=== PATIENT | female | born 1945 | race Caucasian/White ===

== ENCOUNTER 2017-03-09 09:35 | Observation (INO) | payer MEDICARE, BC ==
[~2017-03-09] VITALS: Ht 167.6 cm; Wt 102.7 kg
--- NOTE | ~2017-03-09 | ECH ---
Transthoracic Echocardiography Report (TTE) Demographics Patient Name GIORGI FRY Date of Study 03/10/2017 Patient Number [id number] Visit Number [id number] Date of 1945 Room Number 421 Accession Number [id number] Gender Female Age 72 year(s) Referring King Rosales Subramanian MD Flight Attendant Ramp Tamika Pena Physician Davion Atwood [facility] Physician Interpreting Reva Estrella MD Vehicle Painter Physician Supervising Ordering Physician Davion Atwood MD/STEPHANE Nurse Stress Cdl Driver Conclusions Summary Technically adequate exam. The estimated left ventricular ejection fraction is 60-65%. The left ventricle is moderately dilated . There is evidence of a patent foramen ovale by color Doppler. Informed consent was obtained, bubble study was done, there is no evidence for a PFO or ASD. There is mild aortic regurgitation by color Doppler. Trivial tricuspid regurgitation by color Doppler. There is mild pulmonary hypertension. The pulmonary pressure (RVSP) is 35 mmHg. Procedure Type of Study TTE procedure:Echo Complete SF. Procedure Date Date: 03/10/2017 Start: 08:56 AM Technical Quality: Adequate visualization Indications:Supraventricular Tachycardia, Diabetes, Coronary artery disease, Hypertension and History of CABG. Appropriate Use Criteria: 9 Height: 66 inches Weight: 226 pounds BSA: 2.11 m Rhythm: Within normal limits HR: 96 bpm BP: 149/64 mmHg M-Mode/2D Measurements LV Diastolic Dimension: 6.08 cm LV Systolic Dimension: 3.95 cm LV Septum Diastolic: 0.93 cm LV PW Diastolic: 0.88 cm AO Root Dimension: 2.62 cm Cardiac Output: 7.71 l/min LA Dimension: 4.14 cm Cardiac Index: 3.65 l/min*m RV Diastolic Dimension: 4.17 cm LA volume index: 25 ml/m LVOT: 1.92 cm LVOT VTI: 27.74 cm RV Base: 2.6 cm LV Stroke volume: 80.27 ml RV Mid: 1.5 cm LV Stroke volume index: 38.04 ml/m TAPSE: 2.4 cm TDI-S': 14 cm/s Doppler Measurements AV Peak Velocity: 2.2 m/s MV Peak E-Wave: 1.04 m/s AV Peak Gradient: 19.36 mmHg MV Peak A-Wave: 0.81 m/s AV Mean Gradient: 9.71 mmHg MV E/A Ratio: 1.28 LVOT Peak Velocity: 1.4 m/s MV P1/2t: 60.9 msec AV Area (Continuity):1.99 cm AV P1/2t: 436.3 msec MV Deceleration Time: 190.6 msec TR Velocity:2.84 m/s MV Area (PHT): 3.61 cm TR Gradient:32.26 mmHg PV Peak Velocity: 1.65 m/s Estimated RAP:3 mmHg PV Peak Gradient: 10.94 mmHg Estimated RVSP: 35 mmHg Estimated PASP: 35.26 mmHg E' Septal Velocity: 0.09 m/s A' Septal Velocity: 0.12 m/s E' Lateral Velocity: 0.09 m/s A' Lateral Velocity: 0.15 m/s RA Area: 13.39 cm Findings Left Ventricle The left ventricle is moderately dilated . Diastolic assessment reveals normal relaxation. Right Ventricle Normal right ventricle structure and function. Left Atrium Normal left atrial size. There is evidence of a patent foramen ovale by color Doppler. Informed consent was obtained, bubble study was done, there is no evidence for a PFO or ASD. Right Atrium Normal right atrial size. Mitral Valve Normal mitral valve structure and function. Trivial mitral regurgitation by color Doppler. Aortic Valve The aortic valve is moderately sclerotic. There is mild aortic regurgitation by color Doppler. Tricuspid Valve Normal tricuspid valve structure and function. Trivial tricuspid regurgitation by color Doppler. There is mild pulmonary hypertension. The pulmonary pressure (RVSP) is 35 mmHg. Pulmonic Valve Normal pulmonic valve structure and function. Pericardial Effusion No evidence of pericardial effusion. Miscellaneous Visualized portions of the aortic root and ascending aorta appear normal in size. Pleural Effusion No evidence of pleural effusion. Signature
[2017-03-11] MEDS ORDERED: LEVEMIR100 UNIT/1 SQ ×2 (10:41)
[2017-03-11] MEDS ORDERED: NOVOLOG100 UNIT/2 SQ (10:42)
[2017-03-11] MEDS ORDERED: METOPROLOL SUC100 MG PO (10:43)
[2017-03-11] MEDS ORDERED: ZESTRIL DPS20 MG PO (10:43)
[2017-03-11] MEDS ORDERED: ISOPTIN DPS120 MG PO (10:44)
[2017-03-11] MEDS ORDERED: TRIAMTERENE-HC1 EAC1 PO (10:44)
[2017-03-11] MEDS ORDERED: DAILY MULTIPLE1 EAC1 PO (10:45)
[2017-03-11] MEDS ORDERED: MOTRIN-DPS800 MG PO (10:45)
[2017-03-11] MEDS ORDERED: ASPIR-LOW81 MG PO (10:45)
[2017-03-11] MEDS ORDERED: LIPITOR DPS20 MG PO (10:45)
[2017-03-11] MEDS ORDERED: VITAMIN D2000 UNIT PO (10:46)
[2017-03-11] MEDS ORDERED: VITAMIN C1000 MG PO (10:46)
[2017-03-11] MEDS ORDERED: VITAMIN B-6100 MG PO (10:47)
[2017-03-11] MEDS ORDERED: CHROMIUM400 MCG PO (10:47)
[2017-03-11] MEDS ORDERED: VITAMIN B-12500 MCG PO (10:47)
[2017-03-11] MEDS ORDERED: GARLIC1 EAC1 PO (10:47)
--- NOTE | 2017-03-12 00:34 | ER ---
ADMIT: 03/09/2017 RM/LOC: 421 [facility] MR#: [id number] [address] [address] GIORGI FRY [address] [place] [address] Emergency Room Report SEX: F AGE: 72 : 1945 DATE: 03/09/2017 TIME: 0935 hours Please refer to my T-sheet for complete H and P. HISTORY OF PRESENT ILLNESS: Briefly, the patient is a 72-year-old that comes in with this chest pressure and rapid heart rate, it started while she was eating breakfast this morning. She does have a known history of coronary disease. She also has diabetes, high blood pressure, high cholesterol. She had a bypass 19 years ago. PHYSICAL EXAMINATION: VITAL SIGNS: Blood pressure 179/93, pulse 120, respirations 14, temp 97.6, and saturating 100% on 4 L. GENERAL: No acute distress. HEENT: Grossly normal. LUNGS: Clear. HEART: Tachy. Regular. ABDOMEN: Soft. SKIN: No rash. EXTREMITIES: No palpable cords. EMERGENCY DEPARTMENT COURSE: She received adenosine x2 by the paramedics. She then went back into a rapid rate here in the 200s. I gave her Lopressor 5 IV, which dropped it nicely. We repeated that times total of 50 mg. Her pulse is below 100. She is feeling much better. CBC normal except hemoglobin 9.1. Chemistry is normal except potassium 3.6, glucose 313. Cardiac enzymes negative. TSH was normal. Chest x-ray, no acute disease. EKG was sinus rhythm, rate 129, diffuse changes. We went ahead and heparinized her. I talked to Dr. Ricardo and he will admit to the hospital. ASSESSMENT: 1. Chest pain. 2. Narrow complex tachycardia. 3. Hypertension. PLAN: Admit to the hospital. Rhett Bright MD/ lupe JOB #: [id number] CC: Jeancarlos Brown MD, Attending Physician Jeancarlos Brown MD, Family Physician
--- NOTE | 2017-03-19 15:58 | CO ---
ADMIT: 03/09/2017 RM/LOC: 421 [facility] MR#: [id number] [address] [address] GIORGI FRY [address] [place] [address] Consultation SEX: F AGE: 72 : 1945 DATE OF CONSULTATION: 03/10/2017 ATTENDING PHYSICIAN: Jeancarlos Brown MD CONSULTING PHYSICIAN: Rosales Beltran MD REASON FOR CONSULT: Supraventricular tachycardia. Yolanda Youssef RN, scribing for Dr. Rosales Beltran. HISTORY OF PRESENT ILLNESS: Giorgi is a pleasant 72-year-old female, I have been asked to see in Cardiology consultation by Dr. Ricardo for SVT. She follows up in [facility]. She was last seen in July by Dr. Lester Silveira for her history of single-vessel bypass in 1998 and peripheral vascular disease status post right carotid endarterectomy in 2014. Last echocardiogram was in August of 2016 showing ejection fraction of 60% with mild LVH mild aortic regurgitation and mild pulmonary hypertension. She has history of diabetes, hypertension, and hyperlipidemia, treated medically. Home medications include beta phillip with Lopressor 100 b.i.d. She also has verapamil 120 daily, however she reports that she has not been taking her verapamil consistently as she is worried about lower blood pressure with that. She has not had a stress test performed since 2007. Giorgi presented to [facility] with complaints of palpitations and significant shortness of breath. She reports that she was at home, just finished breakfast yesterday when she began to have severe palpitations in her chest and could not breathe. She had to lean forward in her chair to breathe. She also was lightheaded. Her called EMS. On their arrival, they noted that her heart rate was in the 200s. She was given adenosine 6 mg, which broke her rhythm very briefly, but she went back into SVT. She was given 12 mg of adenosine, which again broke her rhythm, but unfortunately, she went back to heart rates in the 200 to 230. She arrived to the emergency room. She was given 5 mg IV Lopressor three different times, which eventually did get her heart rate down to 100. Her symptoms improved greatly after that point. Cardiac enzymes x3 have been negative. She had mild elevated D-dimer of 0.7. There was question of atrial fibrillation on her EKG and so she was started on a heparin drip. She had venous duplex given elevated D-dimer, which was negative. Of note, she is anemic with a hemoglobin of 8.1. 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 She reports that her anemia is due to her celiac disease. Since hospitalization, she has not had any further episodes of rapid heart rates. She has been receiving her Lopressor, but not her verapamil since admission. She also takes Maxzide 37.5/25 and Zestril 40 daily. Blood pressure has been under good control. PAST MEDICAL HISTORY: Hypertension, hyperlipidemia, diabetes, coronary artery disease status post single-vessel bypass in 1998, right carotid endarterectomy in February 2015, celiac disease, ulcerative colitis, history of peptic ulcer disease, history of kidney stones status post a lithotripsy, osteoporosis, ADMIT: 03/09/2017 RM/LOC: 421 [facility] MR#: [id number] [facility] [address] [address] GIORGI FRY [address] [place] [address] Consultation SEX: F AGE: 72 : 1945 osteoarthritis, chronic anemia, and diabetic neuropathy. PAST SURGICAL HISTORY: Includes bypass in 1998, two left rotator cuff repairs, one right rotator cuff repair, right carotid endarterectomy, bilateral carpal tunnel release, knee scope, appendectomy, tonsillectomy, and lithotripsy. ALLERGIES: ADHESIVE TAPE AND MORPHINE. MEDICATIONS: Current medications include: 1. Aspirin 81 daily. 2. Lipitor 20 daily. 3. Lopressor 100 b.i.d. 4. Maxzide 37.5/25 daily. 5. Zestril 40 daily. 6. Heparin drip per protocol. 7. Lopressor IV 5 mg every 2 hours p.r.n. 8. NovoLog sliding scale insulin. 9. Levemir 80 at bedtime and 60 daily. 10.Vitamin D 1000 daily. 11.Vitamin C 500 daily. FAMILY HISTORY: Denies any family history of coronary artery disease in biological parents. SOCIAL HISTORY: Giorgi is . She lives at home with her . She is a Scientologist. She follows a gluten free diet. She denies any caffeine, alcohol, drug, or tobacco use. She quit smoking over 50 years ago. REVIEW OF SYSTEMS: GENERAL: Denies fatigue, fever, chills, sweats, rash, or weight loss. EYES: Denies double vision, blurred vision, cataracts, or glaucoma. ENT: Denies hearing loss or problems with nose, mouth or throat. PULMONARY: Denies cough, sputum production, asthma, emphysema or bronchitis. Denies snoring loudly, wakefulness at night, or fatigue upon awakening. GASTROINTESTINAL: History of celiac disease, peptic ulcer disease, ulcerative colitis. Denies heartburn or difficulty swallowing. No change in bowel habits. Denies dark or bloody stools. No history of ulcers, hiatal hernia, or gallbladder or liver disease. GENITOURINARY: History of kidney stones. Denies dysuria, hematuria, nocturia, urinary tract infection, or kidney stones. Denies history of renal insufficiency or failure. MUSCULOSKELETAL: History of osteoarthritis, osteoporosis, denies gout. ENDOCRINE: Positive for diabetes. Denies thyroid disease. HEMATOLOGIC: Chronic anemia. Denies any bleeding issues currently or cancer. She is anemic with a hemoglobin of 8.1. NEUROLOGIC: History of diabetic neuropathy. Denies chronic headaches, dizziness, syncope, stroke, seizures or numbness or tingling. ADMIT: 03/09/2017 RM/LOC: 421 [facility] MR#: [id number] [address] [address] GIORGI FRY [address], [place] [address] Consultation SEX: F AGE: 72 : 1945 PSYCHIATRIC: Denies history of mental illness or feelings of depression. PHYSICAL EXAMINATION: VITAL SIGNS: Blood pressure 155/60, heart rate 100, respirations 14, temperature 98.1, oxygenation 95% on room air. SKIN: [place], warm and dry. EYES: Sclerae clear. No xanthelasmas. ENT: Oral mucosa is pink and moist. No jugular venous distention or carotid bruits. CHEST: Respirations are even and unlabored. Lungs are clear to auscultation. HEART: Regular rate and rhythm. Normal S1, S2. No murmurs, rubs or gallops. ABDOMEN: Soft and nontender. MUSCULOSKELETAL: Gait is normal. EXTREMITIES: Peripheral pulses palpable. No clubbing, cyanosis or edema. PSYCHIATRIC: Alert and oriented. Mood and affect are appropriate. DIAGNOSTIC DATA: Venous duplex on 03/09 showed negative for DVT bilaterally. Sodium 141, potassium 3.7, BUN 16, creatinine 0.9, glucose 182, and magnesium 2.1. TSH 2.87 D-dimer 0.7. Hemoglobin A1c 8.4. White blood cell count 9.9, hemoglobin 8.1, hematocrit 27.8, and platelets 517. CK 33, MB 0.9, troponin 0.031. This is on third set. All three sets have been negative. ASSESSMENT AND PLAN: 1. Supraventricular tachycardia. 2. Coronary artery disease status post single-vessel bypass in 1998. 3. Carotid occlusive disease status post right carotid endarterectomy in 2014. 4. Diabetes mellitus. 5. Hypertension. 6. Hyperlipidemia. It sounds like she has had her first episode of SVT yesterday. She denies any previous episodes similar to this. I will have her continue on her metoprolol ADMIT: 03/09/2017 RM/LOC: 421 [facility] MR#: [id number] [facility] [address] [address] GIORGI FRY [address] [place] [address] Consultation SEX: F AGE: 72 : 1945 and encouraged her to take her verapamil on a regular basis. I would send her home if her echocardiogram looks okay today with monitor for one week to make sure she is not having any other episodes of SVT unrecognized. If she has more episodes in the future, then I discussed with her that she would need to talk to Electrophysiology about consideration of ablation. I think she is okay to discharge today and follow up in 1 month with myself or Dr. Silveira. I will decrease her lisinopril if she has issues with low blood pressures. "I have read and agree with the documentation that has been completed regarding this visit. By signing this record, I attest that the documentation was completed in my physical presence and is an accurate record of the encounter." Yolanda Youssef RN / Rosales Beltran MD / lupe JOB #: [id number] CC: Jeancarlos Brown MD, Attending Physician Jeancarlos Brown MD, Family Physician
--- NOTE | 2017-03-25 08:25 | HP ---
ADMIT: 03/09/2017 RM/LOC: 421 [facility] MR#: [id number] [address] [address] GIORGI FRY [address] [place] [address] History and Physical SEX: F AGE: 72 : 1945 Corrected: 03/10/2017 1317 tanya DATE OF SERVICE: CHIEF COMPLAINT: Shortness of breath and palpitations. HISTORY OF PRESENT ILLNESS: Giorgi is a very pleasant 72-year-old female, normally follows with Dr. Jeancarlos Brown in our clinic, presented to the Emergency Department with the above complaints. The patient states that she was at home eating breakfast this morning with her and all of a sudden, she had acute onset of shortness of breath and cardiac palpitations. EMS was called. There were no chest pains. No nausea, and vomiting. No other associated symptoms. She was found to have heart rates in the 150s to 160s. Thought to be in SVT. She did receive adenosine times a few doses en route to the Emergency Department. Arrived in the Emergency Department and evaluated. Cardiac workup done, cardiac enzymes negative at this point. She did receive multiple doses of metoprolol while down here and now her heart rate is in the 100s. She reports she is feeling much better. Less short of breath. Still feels like some mild palpitations. EKG normal sinus rhythm now. The patient does have a significant history for coronary artery disease, and also status post coronary artery bypass grafting x1 in 1998. She does follow with Cardiology, last saw them in July. She saw them for her carotid disease. Last echo was in 2010 that I have, which showed preserved ejection fraction of 55%. Last stress test was done in 2007 and it was normal. PAST MEDICAL HISTORY: Includes: 1. Chronic anemia. 2. Coronary artery disease, bypass graft x1, single-vessel in 1998. 3. Carotid artery stenosis with right CEA, February 2015. 4. Diabetes mellitus, uncontrolled, type 1. 5. Peptic ulcer disease. 6. Essential hypertension. 7. Hyperlipidemia. 8. Osteoporosis. 9. Ulcerative colitis. ALLERGIES: NO KNOWN DRUG ALLERGIES. MEDICATIONS: Please refer to hospital record. Briefly; 1. Daily aspirin. 2. Atorvastatin 20 mg. 3. Lisinopril 40 mg. 4. Metoprolol 100 mg b.i.d. 5. Levemir 60 units in the morning, 80 units at night. 6. NovoLog 1 unit with 3 g carbohydrate and sliding scale. 7. Triamterene/hydrochlorothiazide 37.5/25. 8. Multiple vitamins. SOCIAL HISTORY: The patient is a previous smoker, does not smoke anymore. ADMIT: 03/09/2017 RM/LOC: 421 [facility] MR#: [id number] [address] [address] GIORGI FRY [address] [place] [address] History and Physical SEX: F AGE: 72 : 1945 Previously worked as front desk worker management. Her is Nehemiah and he would be her medical power of assistant attorney general if she is unable to make medical decisions. No current smoking, alcohol, or drug use. She is a Jehovah Witness and wishes to not have any blood products. FAMILY HISTORY: Biological dad from myocardial infarction. Mom from mesothelioma. REVIEW OF SYSTEMS: Ten-point review of systems obtained, per HPI otherwise negative. PHYSICAL EXAMINATION: VITAL SIGNS: Blood pressure 158/90, pulse 97, respirations 16, 98% on room air. GENERAL: Alert and oriented x3. Does not appear to be in acute distress. HEENT: Pupils equal, round, and reactive. Extraocular muscles intact. Throat clear. Trachea midline. HEART: Regular rate and rhythm. No murmurs. LUNGS: Clear to auscultation bilaterally. No wheezes or crackles. ABDOMEN: Soft, nontender, and nondistended. No organomegaly. EXTREMITIES: Without any significant edema. Just trace swelling bilaterally symmetric. NEUROLOGIC: Cranial nerves II through XII grossly intact. No focal deficits. LABORATORY DATA: White blood count 10.2, hemoglobin 9.1, platelets 558. Glucose 313, otherwise, BMP normal. Chest x-ray normal. EKG sinus rhythm. Cardiac enzymes negative x3 sets. ASSESSMENT: A 72-year-old female with 1. Tachycardia, questionable supraventricular tachycardia. 2. History of coronary artery disease. 3. Diabetes mellitus type 2, uncontrolled. 4. Hyperlipidemia. 5. Hypertension. 6. Carotid disease. 7. Jehovah Witness, wishes no blood products. PLAN: We will admit the patient OPO under Dr. Brown for cardiac rule out. At this point, I do not believe she has had any PE. She is not on oxygen. We will check D-dimer. Check lower extremity Dopplers. We will need to CT her ADMIT: 03/09/2017 RM/LOC: 421 [facility] MR#: [id number] [address] [address] GIORGI FRY [facility] [place] [address] History and Physical SEX: F AGE: 72 : 1945 chest if either of those are positive. Otherwise, she has been started on heparin in the Emergency Department. We will continue her on that. We will need cardiac evaluation in the morning, echocardiogram. It has been a long time since her last stress, so if she stabilizes, may need a repeat stress test. We will ask Cardiology to see her in the morning. In the meantime, we will start her back on her statin, beta phillip, and have p.r.n. beta phillip on board as well. Discussed at length with the patient and her . They are in agreement with the plan and course of action. Rai Ricardo MD/ lupe JOB #: [id number] CC: Jeancarlos Brown, Attending Physician Jeancarlos Brown, Family Physician Corrected: 03/10/2017 1317 tanya
== END 2017-03-10 13:50 | disposition home or self-care (01) ==
LOC: ER 09:35 → 4PCU 11:10
PROVIDERS: ADMIT Family Medicine
DX: I47.1 Supraventricular tachycardia (principal); I25.10 Atherosclerotic heart disease of native coronary artery without angina pectoris; I10 Essential (primary) hypertension; I27.2 Other secondary pulmonary hypertension; I35.1 Nonrheumatic aortic (valve) insufficiency; E78.5 Hyperlipidemia, unspecified; E11.65 Type 2 diabetes mellitus with hyperglycemia; E11.40 Type 2 diabetes mellitus with diabetic neuropathy, unspecified; D53.9 Nutritional anemia, unspecified; M81.0 Age-related osteoporosis without current pathological fracture; Z88.5 Allergy status to narcotic agent; Z91.048 Other nonmedicinal substance allergy status; Z87.19 Personal history of other diseases of the digestive system; Z87.11 Personal history of peptic ulcer disease; Z79.899 Other long term (current) drug therapy; Z87.891 Personal history of nicotine dependence; Z95.1 Presence of aortocoronary bypass graft

== ENCOUNTER → 2017-03-11 | Outpatient (CLI) | payer MEDICARE, BC ==
[~2017-03-11] MED LIST: ASPIR-LOW81 MG PO; CHROMIUM400 MCG PO; DAILY MULTIPLE1 EAC1 PO; GARLIC1 EAC1 PO; ISOPTIN DPS120 MG PO; LEVEMIR100 UNIT/1 SQ; LIPITOR DPS20 MG PO; METOPROLOL SUC100 MG PO; MOTRIN-DPS800 MG PO; NOVOLOG100 UNIT/2 SQ; TRIAMTERENE-HC1 EAC1 PO; VITAMIN B-12500 MCG PO; VITAMIN B-6100 MG PO; VITAMIN C1000 MG PO; VITAMIN D2000 UNIT PO; ZESTRIL DPS20 MG PO
== END | disposition home or self-care (01) ==
LOC: CARD 08:00
DX: I47.1 Supraventricular tachycardia (principal)